=== PATIENT | female | born 1995 | race Caucasian/White ===

== ENCOUNTER → 2016-06-25 | Outpatient (CLI) | payer MEDICAID ==
[~2016-06-25] MED LIST: AMOXICILLIN500 MG PO; BENTYL10 MG PO; CIPRO250 MG PO; CLARITIN10 MG PO; MEDROL DOSEPAK4 MG PO; MOTRIN400 MG PO; MOTRIN600 MG PO; MOTRIN800 MG PO; NKHM; PEPCID20 MG PO; PRENATAL1 TA3 PO; PREVACID30 M1 PO; TRIMOX500 MG PO; VICODIN 5/500 505 MG PO; ZITHROMAX Z PA250 MG PO; [UNRECOGNIZED DRUG - OTHER] IH
== END | disposition home or self-care (01) ==
LOC: US 14:53
DX: Z34.02 Encounter for supervision of normal first pregnancy, second trimester (principal); Z3A.25 25 weeks gestation of pregnancy

== ENCOUNTER 2017-05-10 18:49 | Emergency (ER) | payer SELFPAY ==
[~2017-05-10] VITALS: Ht 154.9 cm; Wt 68.0 kg
[2017-05-10] MEDS ORDERED: NAPROSYN500 MG PO (20:40)
[2017-05-10] MEDS ORDERED: CYCLOBENZAPRINE10 MG PO (20:40)
== END 2017-05-10 20:43 | disposition home or self-care (01) ==
LOC: ED 18:49
DX: S16.1XXA Strain of muscle, fascia and tendon at neck level, initial encounter (principal); S40.012A Contusion of left shoulder, initial encounter; F17.200 Nicotine dependence, unspecified, uncomplicated; V89.2XXA Person injured in unspecified motor-vehicle accident, traffic, initial encounter; Y93.89 Activity, other specified; Y92.488 Other paved roadways as the place of occurrence of the external cause; Y99.8 Other external cause status

== ENCOUNTER → 2018-09-10 | Outpatient (CLI) | payer OTHER ==
[~2018-09-10] MED LIST changes: +CYCLOBENZAPRINE10 MG PO; +NAPROSYN500 MG PO
== END | disposition home or self-care (01) ==
LOC: US 15:50
DX: O09.92 Supervision of high risk pregnancy, unspecified, second trimester (principal); Z3A.21 21 weeks gestation of pregnancy

== ENCOUNTER → 2018-10-13 | Outpatient (CLI) | payer OTHER | END | disposition home or self-care (01) | LOC: LAB 14:08 | DX: O09.92 Supervision of high risk pregnancy, unspecified, second trimester (principal); Z3A.24 24 weeks gestation of pregnancy; R80.9 Proteinuria, unspecified ==

== ENCOUNTER → 2018-11-17 | Outpatient (CLI) | payer OTHER | END | disposition home or self-care (01) | LOC: LAB 11-10 14:24 | DX: R73.09 Other abnormal glucose (principal); Z3A.29 29 weeks gestation of pregnancy ==